=== PATIENT | female | born 1935 | race Caucasian/White ===

== ENCOUNTER 2018-12-04 16:09 | Emergency (ER) | payer MEDICARE, OTHER ==
--- NOTE | 2018-12-04 16:55 | CT ---
CT BRAIN WITHOUT CONTRAST: HISTORY:Injury, headache COMPARISON:None FINDINGS: There are foci of decreased attenuation in the periventricular white matter, consistent with chronic small vessel ischemic disease. No evidence of acute infarct, hemorrhage, midline shift or abnormal extra-axial fluid collections is seen. The ventricular size is appropriate and the basilar cisterns are patent. The bony calvarium is intact. The visualized paranasal sinuses and mastoid air cells are well aerated. There is mucosal disease in the paranasal sinuses. IMPRESSION: No CT evidence of acute intracranial process.
--- NOTE | 2018-12-04 17:00 | RAD ---
Exam: XR Elbow Rt 2 View HISTORY: Injury to right wrist. Pain in right elbow which radiates to the wrist. COMPARISON: None FINDINGS: There is osteoarthritis involving the first carpal metacarpal joint. The base of the metacarpal of th umb is slightly displaced laterally secondary to the prominent osteoarthritis at this level. There is mild ulnar minus configuration. No acute fracture, dislocation, or other acute osseous abnormality is identified. IMPRESSION: 1. No acute fracture or dislocation is seen. If there is persistent pain, follow-up imaging can be pe rformed. 2. 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 3. Mild ulnar minus configuration.
[2018-12-04] MEDS ORDERED: Acetaminophen/Codeine 30-300mg Tablet ONE (17:17)
--- NOTE | 2018-12-04 17:35 | RAD ---
XR Wrist 3 Rt View STANDARD History: Pain. Injury. Comparison: None. Findings: Severe degenerative change of the thumb carpometacarpal joint. No acute fracture or malalig nment. Impression: No acute osseous abnormality.
== END 2018-12-04 17:57 | disposition home or self-care (01) ==
LOC: SCSER 16:09
DX: S63.501A Unspecified sprain of right wrist, initial encounter (principal); S00.03XA Contusion of scalp, initial encounter; S50.01XA Contusion of right elbow, initial encounter; E20.9 Hypoparathyroidism, unspecified; E78.2 Mixed hyperlipidemia; I10 Essential (primary) hypertension; F41.9 Anxiety disorder, unspecified; W01.10XA Fall on same level from slipping, tripping and stumbling with subsequent striking against unspecified object, initial encounter
CPT/HCPCS: 29105; 70450